=== PATIENT | female | born 1960 | race Caucasian/White ===

== ENCOUNTER 2018-02-11 09:00 | Inpatient (IN) | payer OTHER ==
[~2018-02-11] VITALS: Ht 149.9 cm; Wt 98.4 kg
[~2018-02-11 09:00] MED LIST: FLONASE16 GM NS; PERCOCET 7.5-31 EACH PO; PROTONIX40 M1 PO; SINGULAIR10 MG PO; ULTRAM50 MG PO; ZANTAC300 MG PO; ZERTEC PO; ZOCOR20 MG PO; [UNRECOGNIZED DRUG - OTHER]
[2018-02-19] MEDS ORDERED: ZYRTEC10 MG PO (09:10)
[2018-02-20] MEDS ORDERED: DOCUSATE SODIU100 MG PO (10:06)
[2018-02-20] MEDS ORDERED: PERCOCET 5-3251 EACH PO (10:07)
[2018-02-20] MEDS ORDERED: CLONAZEPAM1 MG PO (10:07)
== END 2018-02-20 20:33 | DRG 454 ==
LOC: PED 02-19 04:55 → O/R 02-19 04:55 → SURH 02-19 07:00 → PED 02-19 14:04
PROVIDERS: Orthopaedic Surgery Orthopaedic Surgery of the Spine
PROC: 0RG2071 Fusion of 2 or more Cervical Vertebral Joints with Autologous Tissue Substitute, Posterior Approach, Posterior Column, Open Approach (ICD-10-PCS; 2018-02-19)
PROC: 0RT30ZZ Resection of Cervical Vertebral Disc, Open Approach (ICD-10-PCS; 2018-02-19)
PROC: 07DS3ZZ Extraction of Vertebral Bone Marrow, Percutaneous Approach (ICD-10-PCS; 2018-02-19)
PROC: 0RG20A0 Fusion of 2 or more Cervical Vertebral Joints with Interbody Fusion Device, Anterior Approach, Anterior Column, Open Approach (ICD-10-PCS; principal; 2018-02-19 07:00)
DX: M50.01 Cervical disc disorder with myelopathy, high cervical region (principal); M47.12 Other spondylosis with myelopathy, cervical region; I10 Essential (primary) hypertension